=== PATIENT | male | born 1980 | race Caucasian/White ===

== ENCOUNTER 2020-05-05 12:30 | Emergency (ER) | payer BC ==
[~2020-05-05] VITALS: Ht 177.8 cm; Wt 74.8 kg
[2020-05-05 12:43] VITALS: Ht 177.8 cm; Wt 74.8 kg
[2020-05-05 15:05] VITALS: BP 132/88
== END 2020-05-05 15:05 | disposition home or self-care (01) ==
LOC: ED 12:30
DX: S01.21XA Laceration without foreign body of nose, initial encounter (principal); J45.909 Unspecified asthma, uncomplicated; Z90.49 Acquired absence of other specified parts of digestive tract; W17.89XA Other fall from one level to another, initial encounter; Y93.89 Activity, other specified; Y92.89 Other specified places as the place of occurrence of the external cause; Y99.8 Other external cause status
CPT/HCPCS: 90715; J2001

== ENCOUNTER 2020-05-08 14:44 | Emergency (ER) | payer BC ==
[~2020-05-08] VITALS: Ht 177.8 cm; Wt 74.8 kg
[2020-05-08 15:22] VITALS: Ht 177.8 cm; Wt 74.8 kg
[2020-05-08 15:30] VITALS: BP 110/74
== END 2020-05-08 15:30 | disposition home or self-care (01) ==
LOC: ED 14:44
DX: S01.411D Laceration without foreign body of right cheek and temporomandibular area, subsequent encounter (principal); S01.2 Open wound of nose; X58.XXXD Exposure to other specified factors, subsequent encounter

== ENCOUNTER 2020-05-12 11:47 | Emergency (ER) | payer BC ==
[~2020-05-12] VITALS: Ht 177.8 cm; Wt 74.8 kg
[2020-05-12 11:56] VITALS: BP 110/66; Ht 177.8 cm; Wt 74.8 kg
== END 2020-05-12 12:35 | disposition home or self-care (01) ==
LOC: ED 11:47
DX: S01.81XD Laceration without foreign body of other part of head, subsequent encounter (principal); J45.909 Unspecified asthma, uncomplicated; Z90.49 Acquired absence of other specified parts of digestive tract; X58.XXXD Exposure to other specified factors, subsequent encounter